=== PATIENT | female | born 1975 | race Caucasian/White ===

== ENCOUNTER 2024-03-10 18:09 | Emergency (ER) | payer OTHER, SELFPAY ==
--- NOTE | 2024-03-10 18:15 | ED.GENMED ---
ED Provider Triage
<MAGDALENA Gonzalez - Last Filed: 03/10/24 18:22>
-
Patient seen by provider in Triage?: Seen in Triage
Attestation: A medical screening examination has been initiated by a qualified medical provider. Based on the assessment performed at this time, it has been determined that an emergent medical condition may exist and the patient has been informed
that further medical evaluation and possible additional diagnostic testing may be needed.
HPI: 48 yr old female speaks A[place]i c/o of rlq pain since 4 pm. Denies any radiation of pain.
no UTI s/s no fevers. LMP Feb 12
Language line used in translation.
GENERAL: Alert , in no apparent distress
EYE: No visual abnormalities.
NECK: Trachea midline
ENT: No visible abnormalities.
LUNGS: No acute respiratory distress
ABD: tender rlq
NEUROLOGICAL: Alert and oriented
SKIN: Skin intact. No visible changes.
MUSCULOSKELETAL: Moving extremities normally
PSYCH: Normal and appropriate interaction.
This is a medical evaluation conducted in person to initiate diagnostic evaluation and provide initial therapeutics. Please see further documentation by the treating clinician.
History of Present Illness
<MAGDALENA Gonzalez - Last Filed: 03/10/24 18:22>
General
Chief Complaint: Abdominal Pain
Time Seen by Provider: 03/10/24 23:06
<Jesusita Ram DO - Last Filed: 03/11/24 01:24>
History of Present Illness
History of Present Illness:
48-year-old female without significant past medical history presenting for acute onset of right lower quadrant abdominal pain which started around 5 PM today. Denies any nausea or vomiting. Denies fever. Denies any changes in stool. Denies any
significant surgeries in the past. Denies any chest pain or difficulty breathing. Denies additional acute medical complaints
Phy Exam
<Jesusita Ram DO - Last Filed: 03/11/24 01:24>
Physical Exam
Physical Exam:
General: Well-appearing, no clinical signs of dehydration, nontoxic and in no acute distress
HEENT: protecting airway
Neck: appears supple
CV: Normal heart rate, regular rhythm, no evidence of cyanosis
Resp: No accessory muscle use, no increased work of breathing
Abd: Soft and non-distended, focal tenderness to the right lower quadrant without rebound or guarding
Extremities: No deformities, no swelling
Neuro: alert, no focal neurologic deficit
: deferred
Rectal: deferred
Psych: Normal affect
Skin: Intact
Course
<MAGDALENA Gonzalez - Last Filed: 03/10/24 18:22>
Orders/Labs/Results
Orders:
Orders
03/10/24 18:21
Test Result ONCE
03/10/24 18:35
Complete Blood Count/With Diff Urgent
Comprehensive Metabolic Panel Urgent
HCG, Serum Qualitative Screen Urgent
Lipase Urgent
03/10/24 20:36
Iohexol [Omnipaque] 50 ml .ROUTE .STK-MED ONE
03/10/24 20:37
Ondansetron Orally Disint [Zofran Odt (Orally Disintegrating)] 4 mg .ROUTE .STK-MED ONE
03/10/24 20:40
Ondansetron Orally Disint [Zofran Odt (Orally Disintegrating)] 4 mg PO NOW STA
03/10/24 20:41
Iohexol [Omnipaque] See Protocol PO NOW STA
03/10/24 20:51
CT Abd/pel W Iv And Oral Contr Urgent
Comment:
Reason For Exam: RLQ abd pain
03/10/24 21:54
Urinalysis Reflex To Culture Urgent
Date Specimen was Collected: 03/10/24
Time Specimen was Collected: 18:25
Abnormal Lab Results
03/10/24
18:35
RBC 3.89 L 10^6/uL
(4.20-5.40)
Hgb 11.3 L g/dL
(12.0-16.0)
Hct 33.4 L %
(37.0-47.0)
Sodium 134 L mmol/L
(135-145)
Glucose 104 H mg/dl
(70-99)
03/10/24 18:35
03/10/24 18:35
Vital Signs
Initial and Last Documented VS:
Initial Vital Signs
Temp Pulse Resp BP Pulse Ox
98.4 F 83 16 124/85 98
03/10/24 18:18 03/10/24 18:18 03/10/24 18:18 03/10/24 18:18 03/10/24 18:18
Last Documented Vital Signs
Temp Pulse Resp BP Pulse Ox
98.1 F 63 20 110/68 98
03/10/24 20:29 03/10/24 23:29 03/10/24 20:29 03/10/24 23:29 03/10/24 23:29
<Jesusita Ram, DO - Last Filed: 03/11/24 01:24>
Orders/Labs/Results
Orders:
Orders
03/10/24 18:21
Test Result ONCE
03/10/24 18:35
Complete Blood Count/With Diff Urgent
Comprehensive Metabolic Panel Urgent
HCG, Serum Qualitative Screen Urgent
Lipase Urgent
03/10/24 20:36
Iohexol [Omnipaque] 50 ml .ROUTE .STK-MED ONE
03/10/24 20:37
Ondansetron Orally Disint [Zofran Odt (Orally Disintegrating)] 4 mg .ROUTE .STK-MED ONE
03/10/24 20:40
Ondansetron Orally Disint [Zofran Odt (Orally Disintegrating)] 4 mg PO NOW STA
03/10/24 20:41
Iohexol [Omnipaque] See Protocol PO NOW STA
03/10/24 20:51
CT Abd/pel W Iv And Oral Contr Urgent
Comment:
Reason For Exam: RLQ abd pain
03/10/24 21:54
Urinalysis Reflex To Culture Urgent
Date Specimen was Collected: 03/10/24
Time Specimen was Collected: 18:25
Abnormal Lab Results
03/10/24
18:35
RBC 3.89 L 10^6/uL
(4.20-5.40)
Hgb 11.3 L g/dL
(12.0-16.0)
Hct 33.4 L %
(37.0-47.0)
Sodium 134 L mmol/L
(135-145)
Glucose 104 H mg/dl
(70-99)
03/10/24 18:35
03/10/24 18:35
Vital Signs
Initial and Last Documented VS:
Initial Vital Signs
Temp Pulse Resp BP Pulse Ox
98.4 F 83 16 124/85 98
03/10/24 18:18 03/10/24 18:18 03/10/24 18:18 03/10/24 18:18 03/10/24 18:18
Last Documented Vital Signs
Temp Pulse Resp BP Pulse Ox
98.1 F 63 20 110/68 98
03/10/24 20:29 03/10/24 23:29 03/10/24 20:29 03/10/24 23:29 03/10/24 23:29
<Jesusita Ram, - Last Filed: 03/11/24 01:24>
MDM/Problems Addressed
MDM/Problems Addressed:
48-year-old female without significant past medical history presenting for acute onset of right lower quadrant abdominal pain. Vital signs are normal.
On exam, patient is well-appearing, nontoxic. On abdominal exam, focal tenderness to the right lower quadrant. For this reason appendicitis is a consideration. Patient had laboratory analysis prior to my assessment, no leukocytosis. Plan for CT
abdominal imaging. Patient declining any pain medication at this time.
01:10 -CT without acute intra-abdominal pathology, does show constipation. Patient otherwise remained stable. Feel stable for discharge. Advised a stool softener. Return precautions discussed and patient verbalized understanding
<Jesusita Ram DO - Last Filed: 03/11/24 01:24>
*Critical Care Note
Total Time (30-74mins, 75-104mins- exclusive of procedures): Not Applicable
ED Attending Note
<MAGDALENA Gonzalez - Last Filed: 03/10/24 18:22>
-
Portions of this chart may have been created with voice recognition software.� Occasional wrong word or��sound alike� substitutions may have occurred due to the inherent limitations of voice recognition software.
Discharge Plan
Departure
Referrals:
NONE,* [Family Provider] -
Interventions
Interventions:
*Risk Screen - Suicide Last Done: 03/10/24 18:18
*General Assessment Last Done: 03/10/24 18:18
*Neglect/Abuse Screening Last Done: 03/10/24 18:18
ED- Fall Risk Assessment Last Done: 03/10/24 23:25
*ED COVID-19 Vaccine History Last Done: 03/10/24 23:25
PK-Jcqozq-Srhshgcfqd Assessment Last Done: 03/10/24 23:25
Discharge Date and Time
Print Language: L[place]
[2024-03-10 18:18] VITALS: BP 124/85
[2024-03-10 18:45] LABS: % Basophils 0.7 % (0-2); % Eosinophils 1.5 % (0-6); % Immature Granulocytes 0.2 % (0-0.5); % Lymphocytes 23.7 % (20.5-51.1); % Monocytes 6.4 % (1.7-9.3); % Neutrophils 67.5 % (42.2-75.2); Absolute Basophils 0.1 10^3/uL (0-0.2); Absolute Eosinophils 0.1 10^3/uL (0-0.7); Absolute Monocytes 0.5 10^3/uL (0.1-0.6); Absolute Neutrophils 5.7 10^3/uL (1.4-6.5); Hematocrit 33.4 % (37.0-47.0); Hemoglobin 11.3 g/dL (12.0-16.0); Mean Corp Hgb Conc. 33.8 g/dL (33.0-37.0); Mean Corpuscular Volume 85.9 fL (81.0-99.0); Mean Platelet Volume 10.3 fL (7.4-10.4); Nucleated Red Blood Cells % 0 %; Platelet Count 321 10^3/uL (130-400); Red Blood Cell Count 3.89 10^6/uL (4.20-5.40); Red Cell Dist. Width 11.5 % (11.5-14.5); White Blood Cell Count 8.5 10^3/uL (4.8-10.8)
[2024-03-10 18:56] LABS: ALT (SGPT) 21 U/L (0-35); AST (SGOT) 29 U/L (14-36); Albumin 4.4 g/dl (3.5-5.0); Alkaline Phosphatase 83 U/L (38-126); Blood Urea Nitrogen 16 mg/dl (7-17); Carbon Dioxide 27 mmol/L (22-30); Chloride 101 mmol/L (98-107); Estimated Creatinine Clearance 100 ml/min; Glucose 104 mg/dl (70-99); Potassium 4.1 mmol/L (3.5-5.1); Sodium 134 mmol/L (135-145); Total Bilirubin 0.7 mg/dl (0.2-1.3); Total Protein 7.6 g/dl (6.3-8.2); eGFR > 60.00
[2024-03-10 18:57] LABS: Lipase 119 U/L (23-300)
[2024-03-10 19:58] LABS: HCG, Serum Qualitative Screen Negative
[2024-03-10 20:29] VITALS: BP 121/77
[2024-03-10] MEDS: ZOFRAN ODT (ORALLY DISINTEGRATING) 4 MG PO (20:40)
[2024-03-10] MEDS: OMNIPAQUE 50 ML PO (20:41)
[2024-03-10 22:02] LABS: Urine Albumin Negative (Neg - Trace); Urine Bilirubin Negative (Negative); Urine Character Clear (Clear); Urine Color Straw; Urine Glucose Negative (Negative); Urine Ketone Negative (Negative); Urine Leukocyte Negative (Negative); Urine Nitrite Negative (Negative); Urine Occult Blood Negative (Negative); Urine Urobilinogen Negative (Neg - 1+)
[2024-03-10 23:24] VITALS: BMI 21.4
[2024-03-10 23:29] VITALS: BP 110/68
== END 2024-03-11 01:41 | disposition home or self-care (01) ==
LOC: EMR 18:09
PROVIDERS: Nurse Practitioner; EMERGENCY PHYSICIAN Student in an Organized Health Care Education/Training Program
DX: R10.31 Right lower quadrant pain (principal); K59.00 Constipation, unspecified
CPT/HCPCS: 99284; 74177; 80053; 81003; 83690; 84703; 85025; Q9967

== ENCOUNTER → 2024-07-05 14:52 | Outpatient (REF) | payer OTHER, SELFPAY | LOC: WDC 14:52 | PROVIDERS: ATTENDING PHYSICIAN Obstetrics & Gynecology Gynecology | DX: Z12.31 Encounter for screening mammogram for malignant neoplasm of breast (principal) | CPT/HCPCS: 77063; 77067 ==

== ENCOUNTER → 2024-07-19 14:45 | Outpatient (REF) | payer OTHER, SELFPAY | LOC: RAD 14:45 | PROVIDERS: ATTENDING PHYSICIAN Obstetrics & Gynecology Gynecology | DX: N83.201 Unspecified ovarian cyst, right side (principal) | CPT/HCPCS: 76830; 76856 ==

== ENCOUNTER 2024-09-12 07:15 | Emergency (ER) | payer OTHER, SELFPAY ==
[2024-09-12] VITALS (26 sets, daily range): BP systolic 99–119; BP diastolic 55–89
--- NOTE | 2024-09-12 07:40 | ED.GENMED ---
History of Present Illness
General
Chief Complaint: Headache
Source: patient, spouse and family
Exam Limitations: none
Time Seen by Provider: 09/12/24 07:24
Nursing documentation reviewed up to this point in time: agreed with
History of Present Illness
History of Present Illness:
48-year-old female without significant past medical history other than described heavy menstrual cycles presenting to the emergency department after severe headache that developed while driving to work otherwise felt well this morning claims that
headache is diffuse throbbing achy sharp she is associated fatigue and weakness generalized. Denies any specific chest pain shortness of breath no history of similar symptoms. No trauma. Had episode of vomiting. Headache reached maximal severity
over a few minutes.
Review of Systems
Review of Systems
Allergies reviewed?: Yes
All Other Systems: ROS reviewed and negative except as documented in HPI and ROS
Phy Exam
Physical Exam
Physical Exam:
GENERAL: Alert , responding to verbal stimuli somewhat lethargic but following commands and directions. Answering questions
EYE: pupils equal and reactive
NECK: Supple, no significant adenopathy.
ENT: o/p clr, mmm.
CARDIAC: Regular rate and rhythm .
LUNGS: Clear breath sounds bilaterally, no acute respiratory distress, no wheezes/rales/rhonchi
ABDOMEN: Soft, without focal tenderness, no r/g, no cvat
NEUROLOGICAL: Alert and oriented, no focal neuro deficits 5 out of 5 upper and lower extremity strength normal sensation when palpating bilaterally normal finger-nose [id number] no pronator drift.
SKIN: Warm and dry, skin intact.
MUSCULOSKELETAL: No edema, well perfused.
PSYCH: Normal
Course
Orders/Labs/Results
Orders:
Orders
09/12/24 07:20
PT/INR [Prothrombin Time] Urgent
PTT Urgent
09/12/24 07:[address] [CT Head W/o Iv Contrast] Stat
Comment:
Reason For Exam: r/o bleed
09/12/24 07:38
Beta Hcg Serum Qualitative Screen [HCG, Serum Qualitative Screen] Urgent
CMP [Comprehensive Metabolic Panel] Urgent
Complete Blood Count/With Diff Urgent
09/12/24 07:39
EKG [Electrocardiogram (*1)] Urgent
Reason for Study: TIA/Stroke
EKG- Treatment ONCE
0.9% Sodium Chloride 1000 ml [Nss] 1,000 ml IV BOLUS
09/12/24 07:40
Test Result ONCE
09/12/24 08:01
Type And Crossmatch [Type+Screen] Urgent
09/12/24 08:07
Diphenhydramine [Benadryl] 50 mg .ROUTE .STK-MED ONE
Metoclopramide [Reglan] 10 mg .ROUTE .STK-MED ONE
09/12/24 08:09
Diphenhydramine [Benadryl] 25 mg IV NOW STA
Metoclopramide [Reglan] 10 mg IV NOW STA
09/12/24 08:10
CT Head & Neck Angio W/wo IV Urgent
Comment:
Reason For Exam: head neck pain, normal non con but severly anemic
09/12/24 08:17
ABO2 Urgent
BBK Wristband Number:
Associate notified that ABO2 has been ordered: [id number]
Date: 09/12/24
Time: 08:08
[employer] Marketing Teacher ID: [id number]
09/12/24 09:21
Ondansetron Injectable [Zofran] 4 mg IV NOW STA
09/12/24 09:22
* Blood Bank Products Urgent
Blood Bank Products: *Packed RBC Leuko(PRBC's)
Quantity: 1
Transfuse Today: Yes
Reason: Anemia
09/12/24 09:35
Ketorolac [Toradol] 30 mg IV NOW STA
Abnormal Lab Results
07/09/12/24 09/12/24
07:20 07:38 08:01
RBC 3.88 L 10^6/uL
(4.20-5.40)
Hgb 7.6 L g/dL
(12.0-16.0)
Hct 25.8 L %
(37.0-47.0)
MCV 66.5 L fL
(81.0-99.0)
MCH 19.6 L pg
(27.0-31.0)
MCHC 29.5 L g/dL
(33.0-37.0)
RDW 17.7 H %
(11.5-14.5)
MPV 11.0 H fL
(7.4-10.4)
Lymphocytes % 19.4 L %
(20.5-51.1)
APTT 21.7 L Sec
(23.4-35.0)
Chloride 110 H mmol/L
(98-107)
Carbon Dioxide 21 L mmol/L
(22-30)
BUN 18 H mg/dl
(7-17)
Glucose 141 H mg/dl
(70-99)
Crossmatch IS Only See Detail
09/12/24 07:38
09/12/24 07:38
Vital Signs
Initial and Last Documented VS:
Initial Vital Signs
BP
107/89
09/12/24 07:20
Last Documented Vital Signs
Temp Pulse Resp BP Pulse Ox
98.1 F 56 15 106/64 100
09/12/24 11:48 09/12/24 12:00 09/12/24 12:00 09/12/24 12:00 09/12/24 12:00
MDM/Problems Addressed
MDM/Problems Addressed:
48-year-old female presenting to the emergency department today with concerns of severe abrupt headache on the way to work within 1 hour. Headache reached its maximum after about 5 minutes was not specifically thunderclap. No specific neurologic
symptoms does feel tired does have nausea and has vomited. On arrival here vital signs are normal heart rate in the 50s blood pressure in the low 100s. No specific focality of the neurologic examination. Normal pupillary examination. CT scan was
performed very quickly concerning the severe nature of symptoms to ensure this is not a subarachnoid. CT scan was performed and normal. Patient was found that be anemic. She claims that she has had heavy menstrual cycles and is aware that she is
chronically anemic. This number is significantly lower that was obtained 6 months ago. With the possibility that the hemoglobin was contributing the patient's headache and lethargy here patient was given a unit of blood. Patient is significant
improvement of symptoms and had full resolution of headache and all symptoms after receiving medications as well as the unit of blood. She denies any ongoing vaginal bleeding at this time. She did have a heavy cycle that concluded a few days ago.
Denies any changes in bowel movements or any additional concern for bleeding. Concerning this should be written for iron supplementation and advised for close outpatient follow-up. Return precautions were given.
*Pulse Oximetry
SaO2: 96
Oxygen Mode of Delivery: Room air
Patient hypoxic: no (100)
*Critical Care Note
Total Time (30-74mins, 75-104mins- exclusive of procedures): Not Applicable
ED Attending Note
-
Portions of this chart may have been created with voice recognition software.� Occasional wrong word or��sound alike� substitutions may have occurred due to the inherent limitations of voice recognition software.
Discharge Plan
Departure
Patient Disposition: Home (Routine Discharge)
Date of Disposition: 09/12/24
Time of Disposition: 13:14
Patient with high blood pressure during this ER visit?: No
Condition: Good
Covid-19: Not Applicable
Discharge Problem:
Anemia, Headache
Instructions: Migraines (DC)
Prescriptions:
New
ferrous sulfate 325 mg (65 mg iron) tablet
325 mg PO BID 14 Days Qty: 28 0RF
Referrals:
[facility] [Provider Group] - Follow up in 2-3 days
Charlene Xiong PA-C [Family Provider, Family Practice]
Rylie May, [Active, Gynecology] - Follow up in 5-7 days
Activity Restrictions/Additional Instructions:
You came to the emergency department today with concerns of headache. You had a CT and a CT angiogram which were normal. Here you had a reassuring workup and improving symptoms you did have significant anemia this is potentially secondary to your
heavy menstrual cycles. It is important to have very close follow-up for reassessment of this. Please take the iron supplementation twice daily and eat a good diet. Immediately return for any worsening, new or concerning symptoms.
Interventions
Interventions:
*Risk Screen - Suicide Last Done: 09/12/24 08:04
*General Assessment Last Done: 09/12/24 08:05
*Neglect/Abuse Screening Last Done: 09/12/24 08:04
*ED- Fall Risk Assessment Last Done: 09/12/24 07:39
*ED COVID-19 Vaccine History Last Done: 09/12/24 07:39
ED- Neurological Assessment Last Done: 09/12/24 07:35
Discharge Date and Time
Print Language: Thai
[2024-09-12 07:54] LABS: Hematocrit 25.8 % (37.0-47.0); Hemoglobin 7.6 g/dL (12.0-16.0); Mean Corp Hgb Conc. 29.5 g/dL (33.0-37.0); Mean Corpuscular Volume 66.5 fL (81.0-99.0); Nucleated Red Blood Cells % 0 %; Platelet Count 318 10^3/uL (130-400); Red Cell Dist. Width 17.7 % (11.5-14.5)
[2024-09-12] MEDS: NSS 1000 IV (07:58)
[2024-09-12 08:09] LABS: INR 1.00; PT 13.5 Sec (11.4-14.6)
[2024-09-12] MEDS: BENADRYL 25 MG IV (08:11)
[2024-09-12] MEDS: REGLAN 10 MG IV (08:12)
[2024-09-12 08:18] LABS: HCG, Serum Qualitative Screen Negative
[2024-09-12 08:26] LABS: ALT (SGPT) 18 U/L (0-35); AST (SGOT) 24 U/L (14-36); Albumin 4.0 g/dl (3.5-5.0); Alkaline Phosphatase 70 U/L (38-126); Blood Urea Nitrogen 18 mg/dl (7-17); Calcium 8.5 mg/dl (8.4-10.2); Carbon Dioxide 21 mmol/L (22-30); Chloride 110 mmol/L (98-107); Glucose 141 mg/dl (70-99); Potassium 4.0 mmol/L (3.5-5.1); Sodium 138 mmol/L (135-145); Total Protein 7.1 g/dl (6.3-8.2); eGFR > 60.00
[2024-09-12 08:32] LABS: APTT 21.7 Sec (23.4-35.0)
[2024-09-12] MEDS: ZOFRAN 4 MG IV (09:27)
[2024-09-12] MEDS: TORADOL 30 MG IV (09:43)
[2024-09-12] MEDS: TYLENOL 1000 MG PO (13:56)
== END 2024-09-12 14:00 | disposition home or self-care (01) ==
LOC: EMR 07:15
PROVIDERS: Physician Assistant; EMERGENCY PHYSICIAN Student in an Organized Health Care Education/Training Program; FAMILY PHYSICIAN Physician Assistant Medical
DX: D64.9 Anemia, unspecified (principal); R51.9 Headache, unspecified; R11.2 Nausea with vomiting, unspecified
CPT/HCPCS: 99285; 96374; 96375 ×3; 96361; 36430; 70450; 70496; 70498; 80053; 84703; 85025; 85610; 85730; 86850; 86900; 86901; 86920; 93005; P9016; Q9967